=== PATIENT | female | born 1955 | race Caucasian/White ===

== ENCOUNTER 2024-02-22 19:27 | Emergency (ER) | payer BC, MEDICARE, OTHER ==
[2024-02-22] MEDS ORDERED: Ibuprofen 200 MG TAB ONE (19:45)
[2024-02-22] MEDS ORDERED: traMADol HCl 50 MG TAB ONE (22:29)
== END 2024-02-22 23:30 | disposition home or self-care (01) ==
LOC: NAV ERS 19:27
DX: S92.315A Nondisplaced fracture of first metatarsal bone, left foot, initial encounter for closed fracture (principal); I10 Essential (primary) hypertension; E78.00 Pure hypercholesterolemia, unspecified; Z79.899 Other long term (current) drug therapy; W20.8XXA Other cause of strike by thrown, projected or falling object, initial encounter

== ENCOUNTER 2024-06-17 14:55 | Emergency (ER) | payer MEDICARE, BC ==
[2024-06-17] MEDS ORDERED: predniSONE 20 MG TAB ONE (16:24)
[2024-06-17] MEDS ORDERED: Lisinopril 20 MG TAB ONE (16:24)
== END 2024-06-17 16:30 | disposition home or self-care (01) ==
LOC: NAV ERS 14:55
DX: L23.7 Allergic contact dermatitis due to plants, except food (principal); I10 Essential (primary) hypertension
CPT/HCPCS: 99282; J7512